=== PATIENT | female | born 1940 | race Caucasian/White ===

== ENCOUNTER 2018-07-15 09:21 | Day surgery (SDC) | payer MEDICARE ==
[~2018-07-15] VITALS: Ht 157.5 cm; Wt 76.2 kg
[~2018-07-15 09:21] MED LIST: ACEASPCAF; ACEASPCAF PO; ALFALFA250 MG PO; ASPIRIN-ACETAM1 EACH PO; BUPR100; BUPR100 PO; CALCIUM PO; GABA300 PO; GABA600 PO; LAMO100 PO; LAMO25 PO; LAMO50 PO; LISI20 PO; LISI5 PO; LORA.5; LORA.5 PO; QUET25 PO; QUIN325; ROSU10TA; TEMA15; TRAN2; ZIPR40; ZIPR80 PO; [UNRECOGNIZED DRUG - OTHER] PO; [UNRECOGNIZED DRUG - REMARK]
[2018-07-15] MEDS ORDERED: GLUC500 (09:41)
== END 2018-07-15 10:53 | disposition home or self-care (01) ==
LOC: ORSCSDS 09:21
PROVIDERS: Ophthalmology
PROC: 08RK3JZ Replacement of Left Lens with Synthetic Substitute, Percutaneous Approach (ICD-10-PCS; principal; 2018-07-15 10:30)
DX: H25.12 Age-related nuclear cataract, left eye (principal); I10 Essential (primary) hypertension; Z79.899 Other long term (current) drug therapy
CPT/HCPCS: J2250; J2405; J3010; J3301; J7120; V2632

== ENCOUNTER 2019-06-28 10:36 | Day surgery (SDC) | payer MEDICARE, SELFPAY ==
[~2019-06-28] VITALS: Ht 157.5 cm; Wt 72.8 kg
[~2019-06-28 10:36] MED LIST changes: +ALFALFA250 MG; +GLUC500
--- NOTE | 2019-06-28 16:37 | NUR ---
06/28/19 1637 Tracy Rojas 1635 ASSUMED CARE OF PT. PT RESTING COMF IN ROOM AT THIS TIME. GAVE PT KERRY SMITH. STATES "SHE WANTS TO STAY OVERNIGHT IN THE HOSPITAL". INFORMED PT/ THAT THERE ARE CERTAIN CRITERIA FOR ADMISSION. PT DENIES ANY PAIN OR N/V.
== END 2019-06-28 16:34 | disposition home or self-care (01) ==
LOC: ORSCSDS 10:36
PROVIDERS: Podiatrist Foot & Ankle Surgery
PROC: 0SGM04Z Fusion of Right Metatarsal-Phalangeal Joint with Internal Fixation Device, Open Approach (ICD-10-PCS; principal; 2019-06-28 12:00)
PROC: 0QBN0ZZ Excision of Right Metatarsal, Open Approach (ICD-10-PCS; principal; 2019-06-28 12:00)
DX: M20.11 Hallux valgus (acquired), right foot (principal); M77.41 Metatarsalgia, right foot; M20.61 Acquired deformities of toe(s), unspecified, right foot; I10 Essential (primary) hypertension; Z79.899 Other long term (current) drug therapy
CPT/HCPCS: C1713; C1769; J0171; J0690; J2250; J2704; J3010; J7120

== ENCOUNTER → 2019-09-22 | Outpatient (CLI) | payer MEDICARE, SELFPAY | LOC: LAB 15:30 → LAB SHORT 15:30 | DX: Z48.817 Encounter for surgical aftercare following surgery on the skin and subcutaneous tissue (principal); Z48.02 Encounter for removal of sutures; L72.0 Epidermal cyst; L08.9 Local infection of the skin and subcutaneous tissue, unspecified | CPT/HCPCS: 87070; 87205 ==

== ENCOUNTER 2019-12-10 09:04 | Day surgery (SDC) | payer MEDICARE, OTHER ==
[~2019-12-10] VITALS: Ht 157.5 cm; Wt 72.7 kg
[~2019-12-10 09:04] MED LIST changes: +METO25ER PO; +Seroquel Xr50 MG PO
[2019-12-10] MEDS ORDERED: TEMA15 (10:03)
--- NOTE | 2019-12-10 10:15 | NUR ---
12/10/19 1015 Linda Ramachandran 2 IV ATTEMPTS BY [facility], 1ST IN L FOREARM INFILTRATED, 2ND IN L FOREARM WAS SUCCESSFUL
--- NOTE | 2019-12-10 12:31 | NUR ---
12/10/19 1230 Carmen Nevarez PT. C/O LEFT BIG TOE HURTING. LEFT FOOT ELEVATED UP ON PILLOW. OBSERVED SCANT AMT. BLOOD ON DRESSING ON TOE NEXT TO LEFT BIG TOE. PT. DESCRIBES "HURT". PT. RATING PAIN AN "8". BOOT LOOSENED UP ALSO. PT. ALSO C/O HER THROAT HURTING. PT. DRINKING JUICE WITHOUT PROBLEMS. INSTRUCTED PT. THAT SHE HAD A LMA FOR SURGERY & MAY HAVE A SORE THROAT FOR A DAY OR SO BUT SHOULD GET BETTER. AT HER SIDE. PT. EATING SNACKS & DRINKING WATER & CRANBERRY JUICE.
== END 2019-12-10 14:34 | disposition home or self-care (01) ==
LOC: ORSCSDS 09:04
PROVIDERS: Podiatrist Foot & Ankle Surgery
PROC: 0SGN04Z Fusion of Left Metatarsal-Phalangeal Joint with Internal Fixation Device, Open Approach (ICD-10-PCS; principal; 2019-12-10 10:15)
PROC: 0SGQ04Z Fusion of Left Toe Phalangeal Joint with Internal Fixation Device, Open Approach (ICD-10-PCS; principal; 2019-12-10 10:15)
DX: M20.12 Hallux valgus (acquired), left foot (principal); M20.42 Other hammer toe(s) (acquired), left foot; I10 Essential (primary) hypertension; F31.9 Bipolar disorder, unspecified; F20.9 Schizophrenia, unspecified; Z79.899 Other long term (current) drug therapy
CPT/HCPCS: C1713; C1769; J0171; J0690; J1100; J2405; J2704; J3010; J7120